=== PATIENT | male | born 1930 | race Caucasian/White ===

== ENCOUNTER 2016-11-19 06:42 | Inpatient (IN) | payer MEDICARE, OTHER ==
[~2016-11-19] VITALS: Ht 177.8 cm; Wt 100.0 kg
[~2016-11-19 06:42] MED LIST: COLC0.6T OR; FURO40TA PO; GLIP-110 PO; IND25C PO; INDO50SU RE; MAGN30TA2; METO5TAB56; NITR-48; OMEP20TA44; POTA25TA4; SIMV-13 PO; TAM04C PO; WARF3TAB20; [UNRECOGNIZED DRUG - OTHER]
[2016-11-19] MEDS ORDERED: SODIUM CHLORIDE 0.9% 500 ML IVB ONE (08:27)
[2016-11-19 08:33] LABS: Basophils # (auto) 0 uL; Basophils % (auto) 0.3 % (0.0-2.0); Eosinophils # (auto) 0.1 uL; Eosinophils % (auto) 0.9 % (0.0-7.0); Hemoglobin 11.9 g/dL (13.5-17.5); Lymphocytes % (auto) 14.3 % (10.0-50.0); Mean Corpuscular Hemoglobin 29.1 pg (28.0-32.0); Mean Corpuscular Hgb Conc. 32.3 g/dL (32.0-36.0); Mean Corpuscular Volume 90.2 fL (80.0-100.0); Mean Platelet Volume 8.2 fL (7.4-10.4); Monocytes # (auto) 0.9 uL; Monocytes % (auto) 12.5 % (0.0-12.0); Neutrophils # (auto) 4.9 uL; Platelet Count (auto) 149 10^3/uL (140-450); Red Cell Distribution Width 15.5 % (11.6-16.0); White Blood Cell 6.8 10^3/uL (4.4-10.8)
[2016-11-19 08:47] LABS: Albumin 3.4 g/dL (3.4-5.0); BUN/Creatinine Ratio 13.1; Bilirubin, Total 0.9 mg/dL (0.2-1.0); Calcium 8.9 mg/dL (8.5-10.1); Magnesium 2.1 mg/dL (1.6-2.6); Potassium 3.9 mmol/L (3.5-5.1); Total Protein 6.6 g/dL (6.4-8.2)
[2016-11-19 09:24] LABS: B-Type Natriuretic Peptide 308.53 pg/mL (0-100); Temperature: 22.5 C (20.0-25.0)
[2016-11-19] MEDS ORDERED: ACETAMINOPHEN 325 MG TAB PO PRN (10:15)
[2016-11-19] MEDS ORDERED: MORPHINE SULF INJ 2 MG/ML SYRINGE 1ML IV PRN (10:15)
[2016-11-19] MEDS: SODIUM CHLORIDE 0.9% 1,000 ML IV SCH (10:15)
[2016-11-19] MEDS ORDERED: HYDROcodone-ACET 5/325MG TAB PO PRN (10:15)
[2016-11-19] MEDS ORDERED: DOCUSATE SOD 100 MG CAP PO PRN (10:15)
[2016-11-19] MEDS ORDERED: ONDANSETRON HCL 4 MG/2 ML VIAL IV PRN (10:15)
[2016-11-19] MEDS ORDERED: AMO250C PO (10:36)
[2016-11-19] MEDS ORDERED: ESCI20TA51 PO (10:36)
[2016-11-19] MEDS ORDERED: ASPI-231 PO (10:36)
[2016-11-19] MEDS ORDERED: RISP0.5T45 PO (10:36)
[2016-11-19] MEDS ORDERED: POTA10TA75 PO (10:36)
[2016-11-19] MEDS ORDERED: NITR0.4S29 SL (10:37)
[2016-11-19] MEDS ORDERED: ONGLYZA PO (10:39)
[2016-11-19] MEDS ORDERED: RAMI5CAP40 PO (10:39)
[2016-11-19 11:00] VITALS: BP 153/86
[2016-11-19] MEDS: MULTIPLE VITAMIN TAB PO SCH (11:04)
[2016-11-19] MEDS: FAMOTIDINE 20 MG TAB PO SCH ×2 (11:05→22:41)
[2016-11-19] MEDS: ENOXAPARIN SOD 40 MG/0.4 ML SYRINGE SC SCH (11:05)
[2016-11-19] MEDS ORDERED: risperiDONE 1 MG TAB PO PRN (15:30)
[2016-11-19 17:00] VITALS: BP 157/88
[2016-11-19 19:33] LABS: Urine Bilirubin Negative (Negative); Urine Blood Negative /uL (Negative); Urine Color Yellow (Yellow); Urine Glucose Normal (Normal); Urine Ketone Negative (Negative); Urine Nitrite Negative (Negative); Urine RBC 15 /hpf (0 - 3); Urine Urobilinogen Normal (Negative)
[2016-11-19 22:00] VITALS: BP 160/74
[2016-11-20] MEDS: SODIUM CHLORIDE 0.9% 1,000 ML IV SCH ×2 (02:55→22:13)
[2016-11-20 05:00] VITALS: BP 155/98
[2016-11-20 05:50] LABS: Basophils # (auto) 0 uL; Basophils % (auto) 0.6 % (0.0-2.0); Eosinophils # (auto) 0.1 uL; Eosinophils % (auto) 2.2 % (0.0-7.0); Hematocrit 36.8 % (41.0-53.0); Hemoglobin 11.9 g/dL (13.5-17.5); Lymphocytes # (auto) 0.8 uL; Lymphocytes % (auto) 15.5 % (10.0-50.0); Mean Corpuscular Hemoglobin 29.1 pg (28.0-32.0); Mean Corpuscular Hgb Conc. 32.5 g/dL (32.0-36.0); Mean Corpuscular Volume 89.8 fL (80.0-100.0); Mean Platelet Volume 8.3 fL (7.4-10.4); Monocytes # (auto) 0.7 uL; Monocytes % (auto) 13.1 % (0.0-12.0); Neutrophils # (auto) 3.6 uL; Neutrophils % (auto) 68.6 % (37.0-80.0); Platelet Count (auto) 126 10^3/uL (140-450); Red Cell Distribution Width 15.5 % (11.6-16.0); White Blood Cell 5.3 10^3/uL (4.4-10.8)
[2016-11-20 06:09] LABS: Albumin 2.9 g/dL (3.4-5.0); BUN/Creatinine Ratio 13.8; Potassium 3.2 mmol/L (3.5-5.1)
[2016-11-20 09:00] VITALS: BP 155/96
[2016-11-20] MEDS: ENOXAPARIN SOD 40 MG/0.4 ML SYRINGE SC SCH (10:27)
[2016-11-20] MEDS: MULTIPLE VITAMIN TAB PO SCH (10:27)
[2016-11-20] MEDS: FAMOTIDINE 20 MG TAB PO SCH ×2 (10:27→22:12)
[2016-11-20 13:00] VITALS: BP 149/81
[2016-11-20 17:00] VITALS: BP 119/58
[2016-11-20 22:00] VITALS: BP 124/63
[2016-11-21 05:38] VITALS: BP 122/70
[2016-11-21 09:00] VITALS: BP 162/85
[2016-11-21] MEDS: MULTIPLE VITAMIN TAB PO SCH (10:19)
[2016-11-21] MEDS: ENOXAPARIN SOD 40 MG/0.4 ML SYRINGE SC SCH (10:20)
[2016-11-21] MEDS: FAMOTIDINE 20 MG TAB PO SCH ×2 (10:20→21:50)
[2016-11-21] MEDS: SODIUM CHLORIDE 0.9% 1,000 ML IV SCH (12:15)
[2016-11-21 13:00] VITALS: BP_SYST 112; BP_SYST 160; BP_DIAS 51; BP_DIAS 85
[2016-11-21 17:00] VITALS: BP 157/108
[2016-11-21 22:00] VITALS: BP 163/88
[2016-11-22] MEDS: SODIUM CHLORIDE 0.9% 1,000 ML IV SCH ×2 (04:55→21:35)
[2016-11-22 05:58] VITALS: BP 153/77
[2016-11-22 09:00] VITALS: BP 70/99
[2016-11-22] MEDS: FAMOTIDINE 20 MG TAB PO SCH ×2 (10:55→23:17)
[2016-11-22] MEDS: ENOXAPARIN SOD 40 MG/0.4 ML SYRINGE SC SCH (10:55)
[2016-11-22] MEDS: MULTIPLE VITAMIN TAB PO SCH (10:55)
[2016-11-22 13:00] VITALS: BP 165/88
[2016-11-22 17:00] VITALS: BP 159/79
[2016-11-22 21:27] VITALS: BP 160/86
[2016-11-22] MEDS: TEMAZEPAM 15 MG CAP PO PRN (23:17)
[2016-11-23 05:12] VITALS: BP 160/79
[2016-11-23 09:00] VITALS: BP 162/85
[2016-11-23] MEDS: FAMOTIDINE 20 MG TAB PO SCH ×2 (10:06→22:13)
[2016-11-23] MEDS: MULTIPLE VITAMIN TAB PO SCH (10:06)
[2016-11-23] MEDS: RAMIPRIL 2.5 MG CAP PO SCH ×2 (10:10→22:13)
[2016-11-23] MEDS: ENOXAPARIN SOD 40 MG/0.4 ML SYRINGE SC SCH (10:10)
[2016-11-23 13:00] VITALS: BP 175/93
[2016-11-23 16:24] LABS: Basophils # (auto) 0 uL; Basophils % (auto) 0.5 % (0.0-2.0); Eosinophils # (auto) 0.1 uL; Eosinophils % (auto) 1.1 % (0.0-7.0); Hematocrit 38.5 % (41.0-53.0); Hemoglobin 12.6 g/dL (13.5-17.5); Lymphocytes # (auto) 1.2 uL; Lymphocytes % (auto) 16.8 % (10.0-50.0); Mean Corpuscular Hemoglobin 29.4 pg (28.0-32.0); Mean Corpuscular Hgb Conc. 32.8 g/dL (32.0-36.0); Mean Corpuscular Volume 89.5 fL (80.0-100.0); Mean Platelet Volume 8.2 fL (7.4-10.4); Monocytes # (auto) 0.8 uL; Monocytes % (auto) 11.8 % (0.0-12.0); Neutrophils # (auto) 4.8 uL; Neutrophils % (auto) 69.8 % (37.0-80.0); Platelet Count (auto) 169 10^3/uL (140-450); Red Cell Distribution Width 15.3 % (11.6-16.0); White Blood Cell 6.8 10^3/uL (4.4-10.8)
[2016-11-23 16:47] LABS: Albumin 3.3 g/dL (3.4-5.0); BUN/Creatinine Ratio 10.3; Calcium 8.8 mg/dL (8.5-10.1); Potassium 3.6 mmol/L (3.5-5.1)
[2016-11-23 16:49] LABS: Bilirubin, Total 0.9 mg/dL (0.2-1.0); Total Protein 6.8 g/dL (6.4-8.2)
[2016-11-23 17:00] VITALS: BP 140/85
[2016-11-23] MEDS: TAMSULOSIN HYDROCHLORIDE 0.4 MG CAP PO SCH (18:00)
[2016-11-23 21:52] VITALS: BP 161/82
[2016-11-24 05:00] VITALS: BP 157/82
[2016-11-24 07:52] LABS: Temperature: 22.7 C (20.0-25.0)
[2016-11-24 09:00] VITALS: BP 160/90
[2016-11-24] MEDS: MULTIPLE VITAMIN TAB PO SCH (10:15)
[2016-11-24] MEDS: POTASSIUM CHL 20 Meq TABLET PO SCH (10:16)
[2016-11-24] MEDS: ENOXAPARIN SOD 40 MG/0.4 ML SYRINGE SC SCH (10:16)
[2016-11-24] MEDS: RAMIPRIL 2.5 MG CAP PO SCH ×2 (10:16→21:46)
[2016-11-24] MEDS: FAMOTIDINE 20 MG TAB PO SCH ×2 (10:16→21:46)
[2016-11-24] MEDS: FUROSEMIDE 20 MG TAB PO SCH (10:17)
[2016-11-24 13:00] VITALS: BP 155/84
[2016-11-24 16:33] VITALS: BP 141/82
[2016-11-24] MEDS: TAMSULOSIN HYDROCHLORIDE 0.4 MG CAP PO SCH (17:47)
[2016-11-24 21:30] VITALS: BP 150/77
[2016-11-24] MEDS: TEMAZEPAM 15 MG CAP PO PRN (21:47)
[2016-11-25 05:01] VITALS: BP 135/77
[2016-11-25 09:00] VITALS: BP 143/79
[2016-11-25] MEDS: FUROSEMIDE 20 MG TAB PO SCH (10:26)
[2016-11-25] MEDS: RAMIPRIL 2.5 MG CAP PO SCH ×2 (10:26→21:48)
[2016-11-25] MEDS: ENOXAPARIN SOD 40 MG/0.4 ML SYRINGE SC SCH (10:26)
[2016-11-25] MEDS: MULTIPLE VITAMIN TAB PO SCH (10:26)
[2016-11-25] MEDS: FAMOTIDINE 20 MG TAB PO SCH ×2 (10:26→21:48)
[2016-11-25] MEDS: POTASSIUM CHL 20 Meq TABLET PO SCH (10:26)
[2016-11-25 13:00] VITALS: BP 155/96
[2016-11-25 17:00] VITALS: BP 147/79
[2016-11-25] MEDS: TEMAZEPAM 15 MG CAP PO PRN (17:40)
[2016-11-25] MEDS: TAMSULOSIN HYDROCHLORIDE 0.4 MG CAP PO SCH (17:58)
[2016-11-25 22:04] VITALS: BP 143/86
[2016-11-26 05:00] VITALS: BP 164/80
[2016-11-26 09:00] VITALS: BP 160/89
[2016-11-26] MEDS: ENOXAPARIN SOD 40 MG/0.4 ML SYRINGE SC SCH (09:46)
[2016-11-26] MEDS: POTASSIUM CHL 20 Meq TABLET PO SCH (09:46)
[2016-11-26] MEDS: FUROSEMIDE 20 MG TAB PO SCH (09:47)
[2016-11-26] MEDS: FAMOTIDINE 20 MG TAB PO SCH (09:47)
[2016-11-26] MEDS: MULTIPLE VITAMIN TAB PO SCH (09:47)
[2016-11-26] MEDS: RAMIPRIL 2.5 MG CAP PO SCH (09:48)
[2016-11-26] MEDS ORDERED: risperiDONE 1 MG TAB PO SCH (10:00)
[2016-11-26 13:00] VITALS: BP 150/81
== END 2016-11-26 14:15 | disposition home or self-care (01) | DRG 871 ==
LOC: ER 06:45 → OVERFLOW 06:46 → WEST WING 11:40
PROVIDERS: ADMIT Internal Medicine; ATTEND Internal Medicine Cardiovascular Disease
DX: A41.9 Sepsis, unspecified organism (principal); G92 Toxic encephalopathy; I63.9 Cerebral infarction, unspecified; J18.9 Pneumonia, unspecified organism; I13.0 Hypertensive heart and chronic kidney disease with heart failure and stage 1 through stage 4 chronic kidney disease, or unspecified chronic kidney disease; I50.42 Chronic combined systolic (congestive) and diastolic (congestive) heart failure; N39.0 Urinary tract infection, site not specified; D63.8 Anemia in other chronic diseases classified elsewhere; E11.21 Type 2 diabetes mellitus with diabetic nephropathy; E11.22 Type 2 diabetes mellitus with diabetic chronic kidney disease; E78.5 Hyperlipidemia, unspecified; I25.10 Atherosclerotic heart disease of native coronary artery without angina pectoris; N18.3 Chronic kidney disease, stage 3 (moderate); F02.80 Dementia in other diseases classified elsewhere, unspecified severity, without behavioral disturbance, psychotic disturbance, mood disturbance, and anxiety; G30.9 Alzheimer's disease, unspecified; I34.0 Nonrheumatic mitral (valve) insufficiency; E66.9 Obesity, unspecified; Z79.899 Other long term (current) drug therapy; Z87.440 Personal history of urinary (tract) infections; I25.2 Old myocardial infarction; Z95.1 Presence of aortocoronary bypass graft; Z95.2 Presence of prosthetic heart valve; Z98.49 Cataract extraction status, unspecified eye; Z79.82 Long term (current) use of aspirin
CPT/HCPCS: 36415; 70450; 71010; 80053; 81001; 82607; 82746; 83605; 83735; 83880; 84439; 84443; 84484; 85025; 87040; 92610; 93005; 93306; 93886; 94761; 95819; 96372; 97001; J2405

== ENCOUNTER → 2017-07-28 | Outpatient (CLI) | payer MEDICARE, OTHER ==
[~2017-07-28] MED LIST changes: +AMO250C PO; +ASPI-231 PO; -COLC0.6T OR; +ESCI20TA51 PO; -IND25C PO; -INDO50SU RE; -MAGN30TA2; -NITR-48; +NITR0.4S29 SL; +ONGLYZA PO; +POTA10TA75 PO; -POTA25TA4; +RAMI5CAP40 PO; +RISP0.5T45 PO; -WARF3TAB20; -[UNRECOGNIZED DRUG - OTHER]
[2017-07-28 10:15] LABS: Urine RBC None Seen /hpf (0 - 3)
[2017-07-28 12:12] LABS: Basophils # (auto) 0 uL; Basophils % (auto) 0.6 % (0.0-2.0); Eosinophils # (auto) 0.1 uL; Eosinophils % (auto) 1.7 % (0.0-7.0); Hematocrit 42.3 % (41.0-53.0); Hemoglobin 13.9 g/dL (13.5-17.5); Lymphocytes # (auto) 0.8 uL; Lymphocytes % (auto) 12.3 % (10.0-50.0); Mean Corpuscular Hemoglobin 29.3 pg (28.0-32.0); Mean Corpuscular Hgb Conc. 32.8 g/dL (32.0-36.0); Mean Corpuscular Volume 89.4 fL (80.0-100.0); Mean Platelet Volume 8.1 fL (7.4-10.4); Monocytes # (auto) 0.5 uL; Monocytes % (auto) 8.2 % (0.0-12.0); Neutrophils # (auto) 5.1 uL; Neutrophils % (auto) 77.2 % (37.0-80.0); Platelet Count (auto) 166 10^3/uL (140-450); Red Cell Distribution Width 15.4 % (11.6-16.0); White Blood Cell 6.6 10^3/uL (4.4-10.8)
[2017-07-28 12:16] LABS: Urine Bilirubin Negative (Negative); Urine Blood Negative /uL (Negative); Urine Color Yellow (Yellow); Urine Glucose Normal (Normal); Urine Ketone Negative (Negative); Urine Mucus FEW (None Seen); Urine Nitrite Negative (Negative); Urine Squamous Epithelial Cell FEW /hpf (<5); Urine Urobilinogen Normal (Negative); Urine pH 5.5 (5.0-8.0)
[2017-07-28 12:32] LABS: Albumin 3.5 g/dL (3.4-5.0); BUN/Creatinine Ratio 14.4; Bilirubin, Direct 0.2 mg/dL (0-0.2); Bilirubin, Total 0.5 mg/dL (0.2-1.0); Calcium 8.7 mg/dL (8.5-10.1); Potassium 4.6 mmol/L (3.5-5.1); Total Protein 7.3 g/dL (6.4-8.2)
== END | disposition home or self-care (01) ==
LOC: LAB 09:50
PROVIDERS: ATTEND Internal Medicine Cardiovascular Disease
DX: I10 Essential (primary) hypertension (principal); E78.00 Pure hypercholesterolemia, unspecified; K74.1 Hepatic sclerosis; E11.9 Type 2 diabetes mellitus without complications; R97.20 Elevated prostate specific antigen [PSA]; R53.81 Other malaise; E03.9 Hypothyroidism, unspecified; D64.9 Anemia, unspecified; E55.9 Vitamin D deficiency, unspecified; N39.0 Urinary tract infection, site not specified
CPT/HCPCS: 36415; 80048; 80061; 80076; 81001; 82306; 83036; 84153; 84443; 85025; 87086

== ENCOUNTER → 2017-08-10 | Outpatient (CLI) | payer MEDICARE, OTHER | END | disposition home or self-care (01) | LOC: Rad HDHVI 09:41 | PROVIDERS: ATTEND Internal Medicine Cardiovascular Disease | DX: R06.02 Shortness of breath (principal); E11.9 Type 2 diabetes mellitus without complications | CPT/HCPCS: 93306 ==

== ENCOUNTER → 2017-08-14 | Outpatient (CLI) | payer MEDICARE, OTHER ==
[~2017-08-14] MED LIST changes: +RISP1TAB63 PO
[2017-08-14 10:00] VITALS: BP 150/76
[2017-08-14 10:26] VITALS: BP 141/75
[2017-08-14 12:22] LABS: Basophils # (auto) 0.1 uL; Basophils % (auto) 0.8 % (0.0-2.0); Eosinophils # (auto) 0.1 uL; Eosinophils % (auto) 1.9 % (0.0-7.0); Hematocrit 41.1 % (41.0-53.0); Hemoglobin 13.7 g/dL (13.5-17.5); Lymphocytes # (auto) 0.9 uL; Lymphocytes % (auto) 11.4 % (10.0-50.0); Mean Corpuscular Hemoglobin 29.7 pg (28.0-32.0); Mean Corpuscular Hgb Conc. 33.3 g/dL (32.0-36.0); Mean Corpuscular Volume 89.2 fL (80.0-100.0); Monocytes # (auto) 0.7 uL; Neutrophils # (auto) 5.8 uL; Neutrophils % (auto) 76.9 % (37.0-80.0); Nucleated Red Blood Cells % 0.1 %; Platelet Count (auto) 155 10^3/uL (140-450); Red Cell Distribution Width 15.8 % (11.8-14.3); White Blood Cell 7.6 10^3/uL (4.4-10.8)
[2017-08-14 12:29] LABS: BUN/Creatinine Ratio 15.2; Calcium 8.6 mg/dL (8.5-10.1); Potassium 4.5 mmol/L (3.5-5.1)
[2017-08-14 12:36] LABS: INR 1.08 (0.9-1.15); Partial Thromboplastin Time 28.7 sec (22.64-33.71); Prothrombin Time 11.8 sec (9.37-12.3)
== END | disposition home or self-care (01) ==
LOC: Rad HDHVI 09:45
PROVIDERS: ATTEND Internal Medicine Cardiovascular Disease
DX: Z01.818 Encounter for other preprocedural examination (principal); I25.10 Atherosclerotic heart disease of native coronary artery without angina pectoris; I10 Essential (primary) hypertension; D64.9 Anemia, unspecified; R79.1 Abnormal coagulation profile; Z95.0 Presence of cardiac pacemaker
CPT/HCPCS: 36415; 71020; 80048; 85025; 85610; 85730; 93005; G0463

== ENCOUNTER 2017-08-17 06:49 | Inpatient (IN) | payer MEDICARE, OTHER ==
[~2017-08-17] VITALS: Ht 177.8 cm; Wt 102.4 kg
[~2017-08-17 06:49] MED LIST changes: -AMO250C PO; -METO5TAB56; -RISP0.5T45 PO
[2017-08-17] MEDS ORDERED: LIDOCAINE 2%HCL (LOCAL ANESTH.) INJ 20ML MDV ONE (07:34)
[2017-08-17] MEDS ORDERED: VANCOMYCIN HCL 1000 MG VL IR ONE (07:45)
[2017-08-17] MEDS ORDERED: ceFAZolin 1GM/50ML D5W 50 ML IV ONE ×2 (07:45→07:53)
[2017-08-17] MEDS ORDERED: VANCOMYCIN 1GM/250ML D5W 250 ML IV ONE ×2 (07:45→07:53)
[2017-08-17] MEDS ORDERED: MIDAZOLAM HCL 1MG/1ML-2 ML VIAL ONE (07:46)
[2017-08-17] MEDS ORDERED: fentaNYL CITRATE 100 MCG/2 ML VL ONE (07:47)
[2017-08-17] MEDS ORDERED: VANCOMYCIN HCL 1000 MG VL ONE (07:53)
[2017-08-17] MEDS ORDERED: cloNIDine HCL 0.1 MG TAB PO ONE (10:15)
[2017-08-17] MEDS ORDERED: MORPHINE SULF INJ 2 MG/ML SYRINGE 1ML IV PRN (12:00)
[2017-08-17] MEDS ORDERED: NITROGLYCERIN 0.4 MG SL TAB SL PRN (12:00)
[2017-08-17 14:20] VITALS: BP 158/89
[2017-08-17 17:45] VITALS: BP 173/91
[2017-08-17 17:47] VITALS: BP 173/91
[2017-08-17 22:00] VITALS: BP 147/84
[2017-08-18 05:00] VITALS: BP 147/90
[2017-08-18 08:30] VITALS: BP 126/79
[2017-08-18 08:33] VITALS: BP 142/79
[2017-08-18 09:07] VITALS: BP 142/79
== END 2017-08-18 11:05 | disposition home or self-care (01) | DRG 259 ==
LOC: CATH 06:49 → TELE-E-ADS 06:50 → TELE-EAST 17:36
PROVIDERS: ADMIT Internal Medicine Cardiovascular Disease; ATTEND Internal Medicine Cardiovascular Disease
PROC: 0JPT0PZ Removal of Cardiac Rhythm Related Device from Trunk Subcutaneous Tissue and Fascia, Open Approach (ICD-10-PCS; principal; 2017-08-17)
PROC: 0JH604Z Insertion of Pacemaker, Single Chamber into Chest Subcutaneous Tissue and Fascia, Open Approach (ICD-10-PCS; 2017-08-17)
DX: I49.5 Sick sinus syndrome (principal); D68.59 Other primary thrombophilia; G30.9 Alzheimer's disease, unspecified; F01.50 Vascular dementia, unspecified severity, without behavioral disturbance, psychotic disturbance, mood disturbance, and anxiety; F02.80 Dementia in other diseases classified elsewhere, unspecified severity, without behavioral disturbance, psychotic disturbance, mood disturbance, and anxiety; I48.2 Chronic atrial fibrillation; E78.5 Hyperlipidemia, unspecified; F09 Unspecified mental disorder due to known physiological condition; I10 Essential (primary) hypertension; I25.10 Atherosclerotic heart disease of native coronary artery without angina pectoris
CPT/HCPCS: 33227; 36415; 71020; 80048; 85025; 85610; 85730; 93005; 99152; 99153; C1785; G0463; J0690; J2250

== ENCOUNTER → 2017-11-22 | Outpatient (CLI) | payer MEDICARE, OTHER ==
[~2017-11-22] VITALS: Ht 30.5 cm; Wt 0.5 kg
[~2017-11-22] MED LIST changes: +CYANOCOBALAMIN (B-12) 1000 MCG/1 ML VIAL IM ONE; +CYANOCOBALAMIN (B-12) 1000 MCG/1 ML VIAL ONE; +FUROSEMIDE 100 MG/10ML VIAL IV ONE; +FUROSEMIDE 40 MG/4 ML VIAL ONE; +POTASSIUM CHL 20 Meq TABLET PO ONE
[2017-11-22 10:30] VITALS: BP 110/58
[2017-11-22 11:20] VITALS: BP 118/62
[2017-11-22 16:43] LABS: Basophils # (auto) 0 uL; Basophils % (auto) 0.7 % (0.0-2.0); Eosinophils # (auto) 0.1 uL; Lymphocytes # (auto) 0.8 uL; Lymphocytes % (auto) 11.9 % (10.0-50.0); Mean Corpuscular Hemoglobin 30.4 pg (28.0-32.0); Mean Corpuscular Hgb Conc. 33.2 g/dL (32.0-36.0); Mean Corpuscular Volume 91.3 fL (80.0-100.0); Monocytes # (auto) 0.6 uL; Monocytes % (auto) 9.4 % (0.0-12.0); Neutrophils # (auto) 4.9 uL; Nucleated Red Blood Cells % 0.5 %; Platelet Count (auto) 172 10^3/uL (140-450); Red Blood Cells 4.27 10^6/uL (4.5-5.90); Red Cell Distribution Width 15.7 % (11.8-14.3); White Blood Cell 6.4 10^3/uL (4.4-10.8)
[2017-11-22 16:47] LABS: BUN/Creatinine Ratio 16.9; Calcium 8.6 mg/dL (8.5-10.1); Magnesium 2.3 mg/dL (1.6-2.6); Potassium 4.7 mmol/L (3.5-5.1)
== END | disposition home or self-care (01) ==
LOC: Rad HDHVI 09:55
PROVIDERS: ATTEND Internal Medicine Cardiovascular Disease
DX: I25.5 Ischemic cardiomyopathy (principal); I34.0 Nonrheumatic mitral (valve) insufficiency; I11.0 Hypertensive heart disease with heart failure; I50.23 Acute on chronic systolic (congestive) heart failure; D64.9 Anemia, unspecified; D51.9 Vitamin B12 deficiency anemia, unspecified; E55.9 Vitamin D deficiency, unspecified; E87.70 Fluid overload, unspecified
CPT/HCPCS: 36415; 80048; 82306; 82607; 83735; 83880; 85025; 93306; 96372; 96374; G0463; J1940; J3420

== ENCOUNTER → 2017-12-13 | Outpatient (CLI) | payer MEDICARE, OTHER ==
[~2017-12-13] MED LIST changes: -CYANOCOBALAMIN (B-12) 1000 MCG/1 ML VIAL IM ONE; -FUROSEMIDE 100 MG/10ML VIAL IV ONE; -FUROSEMIDE 40 MG/4 ML VIAL ONE; +KETOROLAC TROMETH 60MG/2ML VIAL IM ONE; -POTASSIUM CHL 20 Meq TABLET PO ONE
[2017-12-13 10:20] VITALS: BP 135/63
[2017-12-13 12:30] VITALS: BP 119/65
[2017-12-13 16:18] LABS: Potassium 4.3 mmol/L (3.5-5.1)
== END | disposition home or self-care (01) ==
LOC: CHF HDHVI 10:16
PROVIDERS: ATTEND Internal Medicine Cardiovascular Disease
DX: S29.9XXA Unspecified injury of thorax, initial encounter (principal); X58.XXXA Exposure to other specified factors, initial encounter; Y93.89 Activity, other specified; Y92.89 Other specified places as the place of occurrence of the external cause; Y99.8 Other external cause status; E87.5 Hyperkalemia; R94.4 Abnormal results of kidney function studies
CPT/HCPCS: 36415; 71101; 82565; 84132; 84520; 96372; G0463; J1885

== ENCOUNTER 2017-12-16 18:32 | Inpatient (IN) | payer MEDICARE, OTHER ==
[~2017-12-16] VITALS: Ht 182.9 cm; Wt 94.0 kg
[~2017-12-16 18:32] MED LIST changes: -CYANOCOBALAMIN (B-12) 1000 MCG/1 ML VIAL ONE; -KETOROLAC TROMETH 60MG/2ML VIAL IM ONE
[2017-12-16 19:38] LABS: Basophils # (auto) 0.1 uL; Eosinophils # (auto) 0.1 uL; Eosinophils % (auto) 1.2 % (0.0-7.0); Hemoglobin 13.7 g/dL (13.5-17.5); Lymphocytes # (auto) 0.8 uL; Lymphocytes % (auto) 11.2 % (10.0-50.0); Mean Corpuscular Hemoglobin 30.9 pg (28.0-32.0); Mean Corpuscular Hgb Conc. 33.5 g/dL (32.0-36.0); Mean Corpuscular Volume 92.2 fL (80.0-100.0); Monocytes # (auto) 0.9 uL; Monocytes % (auto) 12.5 % (0.0-12.0); Neutrophils # (auto) 5.5 uL; Neutrophils % (auto) 74.1 % (37.0-80.0); Platelet Count (auto) 184 10^3/uL (140-450); Red Blood Cells 4.44 10^6/uL (4.5-5.90); Red Cell Distribution Width 15.6 % (11.8-14.3); White Blood Cell 7.4 10^3/uL (4.4-10.8)
[2017-12-16 19:57] LABS: Albumin 3.8 g/dL (3.4-5.0); BUN/Creatinine Ratio 24.8; Bilirubin, Total 0.6 mg/dL (0.2-1.0); Calcium 8.8 mg/dL (8.5-10.1); Potassium 4.6 mmol/L (3.5-5.1); Total Protein 8.2 g/dL (6.4-8.2)
[2017-12-16 21:12] LABS: Hemoglobin 13.2 g/dL (13.5-17.5)
[2017-12-16 21:15] LABS: Basophils # (auto) 0 uL; Basophils % (auto) 0.6 % (0.0-2.0); Eosinophils # (auto) 0.1 uL; Eosinophils % (auto) 0.7 % (0.0-7.0); Hematocrit 38.9 % (41.0-53.0); Lymphocytes # (auto) 0.7 uL; Lymphocytes % (auto) 8.9 % (10.0-50.0); Mean Corpuscular Hemoglobin 30.8 pg (28.0-32.0); Mean Corpuscular Hgb Conc. 33.8 g/dL (32.0-36.0); Mean Corpuscular Volume 91.1 fL (80.0-100.0); Monocytes # (auto) 0.9 uL; Neutrophils # (auto) 5.7 uL; Neutrophils % (auto) 77.8 % (37.0-80.0); Platelet Count (auto) 171 10^3/uL (140-450); Red Blood Cells 4.27 10^6/uL (4.5-5.90); White Blood Cell 7.3 10^3/uL (4.4-10.8)
[2017-12-16] MEDS ORDERED: FUROSEMIDE 20 MG/2 ML VIAL IV ONE (21:30)
[2017-12-16 21:38] LABS: INR 1.08 (0.9-1.15); Partial Thromboplastin Time 26.3 sec (22.64-33.71); Prothrombin Time 11.8 sec (9.37-12.3)
[2017-12-16 21:42] LABS: Urine Bacteria NONE SEEN /hpf (None Seen); Urine Blood Negative /uL (Negative); Urine Hyaline Cast FEW /lpf (0 - 2); Urine Specific Gravity 1.014 (1.001-1.035); Urine WBC 1 /hpf (0 - 3)
[2017-12-16 21:52] LABS: Albumin 3.6 g/dL (3.4-5.0); Bilirubin, Total 0.6 mg/dL (0.2-1.0); Calcium 8.8 mg/dL (8.5-10.1); Magnesium 2.6 mg/dL (1.6-2.6); Potassium 4.5 mmol/L (3.5-5.1); Total Protein 7.6 g/dL (6.4-8.2)
[2017-12-16] MEDS ORDERED: ENOXAPARIN SOD 100 MG/1 ML SYRINGE SC ONE (22:30)
[2017-12-17] MEDS ORDERED: DEXTROSE (50%) 50ML SYRG IV PRN (06:15)
[2017-12-17] MEDS ORDERED: MORPHINE SULF INJ 2 MG/ML SYRINGE 1ML IV PRN (06:15)
[2017-12-17] MEDS ORDERED: NITROGLYCERIN 0.4 MG SL TAB SL PRN (06:15)
[2017-12-17] MEDS ORDERED: HYDROcodone-ACET 5/325MG TAB PO PRN (06:15)
[2017-12-17] MEDS ORDERED: TEMAZEPAM 15 MG CAP PO PRN (06:15)
[2017-12-17] MEDS ORDERED: ONDANSETRON HCL 4 MG/2 ML VIAL IV PRN (06:15)
[2017-12-17] MEDS ORDERED: ACETAMINOPHEN 325 MG TAB PO PRN (06:15)
[2017-12-17] MEDS ORDERED: DOCUSATE SOD 100 MG CAP PO PRN (06:15)
[2017-12-17] MEDS: PANTOPRAZOLE 40 MG TAB PO SCH (09:49)
[2017-12-17] MEDS: ASPirin 81 mg TAB PO SCH (09:49)
[2017-12-17] MEDS: RAMIPRIL 2.5 MG CAP PO SCH ×2 (09:51→22:24)
[2017-12-17] MEDS: ACCU-CHEK COMFORT CURVE STRIP VI SCH ×2 (12:00→17:22)
[2017-12-17] MEDS: InsuLIN REG 1unit/0.01ml Soln (100units/ml) SC SCH ×2 (12:00→17:27)
[2017-12-17 12:15] VITALS: BP_SYST 140; BP_SYST 153; BP_DIAS 72; BP_DIAS 79
[2017-12-17 12:52] VITALS: BP 120/58
[2017-12-17] MEDS: risperiDONE 1 MG TAB PO SCH (16:25)
[2017-12-17] MEDS: DOBUTamine 1000MCG/ML 250 ML IV SCH (16:50)
[2017-12-17] MEDS: FUROSEMIDE INJECTION 250 MG in SODIUM CHL 0.9% 225 ML IV SCH (16:52)
[2017-12-17 17:00] VITALS: BP 137/59
[2017-12-17] MEDS: FUROSEMIDE 40 MG TAB PO SCH (17:19)
[2017-12-17] MEDS: TAMSULOSIN HYDROCHLORIDE 0.4 MG CAP PO SCH (17:20)
[2017-12-17] MEDS: PATIENTS OWN MEDICATION PO SCH (18:38)
[2017-12-17 22:00] VITALS: BP 116/64
[2017-12-17] MEDS: ENOXAPARIN SOD 80 MG/0.8ML SYRINGE SC SCH (22:25)
[2017-12-17] MEDS: ATORVASTATIN 20 MG TAB PO SCH (22:25)
[2017-12-18] MEDS: ACCU-CHEK COMFORT CURVE STRIP VI SCH ×4 (00:22→18:10)
[2017-12-18] MEDS: InsuLIN REG 1unit/0.01ml Soln (100units/ml) SC SCH ×4 (00:22→18:10)
[2017-12-18] MEDS: FUROSEMIDE 40 MG TAB PO SCH ×2 (05:30→18:09)
[2017-12-18 05:37] VITALS: BP 113/60
[2017-12-18] MEDS: risperiDONE 1 MG TAB PO SCH ×2 (06:22→22:24)
[2017-12-18] MEDS: glipiZIDE 5 MG TAB PO SCH (06:22)
[2017-12-18 06:32] LABS: Basophils # (auto) 0 uL; Basophils % (auto) 0.5 % (0.0-2.0); Eosinophils # (auto) 0.1 uL; Eosinophils % (auto) 0.7 % (0.0-7.0); Hematocrit 38.4 % (41.0-53.0); Hemoglobin 13.3 g/dL (13.5-17.5); Lymphocytes # (auto) 0.7 uL; Lymphocytes % (auto) 8.7 % (10.0-50.0); Mean Corpuscular Hemoglobin 30.9 pg (28.0-32.0); Mean Corpuscular Hgb Conc. 34.5 g/dL (32.0-36.0); Mean Corpuscular Volume 89.5 fL (80.0-100.0); Monocytes # (auto) 1.1 uL; Monocytes % (auto) 13.9 % (0.0-12.0); Neutrophils % (auto) 76.2 % (37.0-80.0); Nucleated Red Blood Cells % 0.1 %; Platelet Count (auto) 181 10^3/uL (140-450); Red Cell Distribution Width 14.9 % (11.8-14.3); White Blood Cell 7.9 10^3/uL (4.4-10.8)
[2017-12-18 06:56] LABS: Albumin 3.4 g/dL (3.4-5.0); BUN/Creatinine Ratio 27.2; Calcium 8.8 mg/dL (8.5-10.1); Total Protein 7.2 g/dL (6.4-8.2)
[2017-12-18 07:30] VITALS: BP 141/60
[2017-12-18 09:00] VITALS: BP 141/60
[2017-12-18] MEDS ORDERED: ENOXAPARIN SOD 80 MG/0.8ML SYRINGE SC SCH (10:00)
[2017-12-18] MEDS: PANTOPRAZOLE 40 MG TAB PO SCH (11:00)
[2017-12-18] MEDS: ASPirin 81 mg TAB PO SCH (11:00)
[2017-12-18] MEDS: POTASSIUM CHL 20 Meq TABLET PO SCH (11:00)
[2017-12-18] MEDS: RAMIPRIL 2.5 MG CAP PO SCH ×2 (11:01→22:24)
[2017-12-18] MEDS: DOBUTamine 1000MCG/ML 250 ML IV SCH (11:21)
[2017-12-18 13:00] VITALS: BP 132/64
[2017-12-18] MEDS: POTASSIUM CHL 20MEQ/100ML 100 ML IV SCH ×3 (15:44→18:09)
[2017-12-18] MEDS: FUROSEMIDE INJECTION 250 MG in SODIUM CHL 0.9% 225 ML IV SCH (15:45)
[2017-12-18 17:49] VITALS: BP_SYST 105; BP_SYST 138; BP_DIAS 47; BP_DIAS 64
[2017-12-18] MEDS: TAMSULOSIN HYDROCHLORIDE 0.4 MG CAP PO SCH (18:09)
[2017-12-18 22:00] VITALS: BP 128/63
[2017-12-18] MEDS: ATORVASTATIN 20 MG TAB PO SCH (22:24)
[2017-12-18] MEDS: ENOXAPARIN SOD 80 MG/0.8ML SYRINGE SC SCH (22:25)
[2017-12-19] MEDS: InsuLIN REG 1unit/0.01ml Soln (100units/ml) SC SCH ×4 (00:33→18:00)
[2017-12-19 05:00] VITALS: BP 99/53
[2017-12-19] MEDS: FUROSEMIDE 40 MG TAB PO SCH ×2 (06:00→18:35)
[2017-12-19] MEDS: ACCU-CHEK COMFORT CURVE STRIP VI SCH ×4 (06:25→18:34)
[2017-12-19] MEDS: risperiDONE 1 MG TAB PO SCH ×2 (06:30→23:07)
[2017-12-19] MEDS: glipiZIDE 5 MG TAB PO SCH (06:31)
[2017-12-19 07:30] VITALS: BP 134/71
[2017-12-19] MEDS: PANTOPRAZOLE 40 MG TAB PO SCH (09:11)
[2017-12-19] MEDS: POTASSIUM CHL 20 Meq TABLET PO SCH (09:11)
[2017-12-19] MEDS: RAMIPRIL 2.5 MG CAP PO SCH ×2 (09:12→23:07)
[2017-12-19] MEDS: ASPirin 81 mg TAB PO SCH (09:12)
[2017-12-19 09:21] VITALS: BP 134/71
[2017-12-19] MEDS: PATIENTS OWN MEDICATION PO SCH (09:35)
[2017-12-19] MEDS: DOBUTamine 1000MCG/ML 250 ML IV SCH (10:19)
[2017-12-19 13:38] VITALS: BP 117/61
[2017-12-19 17:56] VITALS: BP 115/62
[2017-12-19] MEDS: TAMSULOSIN HYDROCHLORIDE 0.4 MG CAP PO SCH (18:33)
[2017-12-19] MEDS: FUROSEMIDE INJECTION 250 MG in SODIUM CHL 0.9% 225 ML IV SCH (19:48)
[2017-12-19 21:36] VITALS: BP 124/57
[2017-12-19] MEDS: ATORVASTATIN 20 MG TAB PO SCH (23:07)
[2017-12-19] MEDS: ENOXAPARIN SOD 80 MG/0.8ML SYRINGE SC SCH (23:07)
[2017-12-20] MEDS: ACCU-CHEK COMFORT CURVE STRIP VI SCH ×4 (00:27→18:10)
[2017-12-20] MEDS: InsuLIN REG 1unit/0.01ml Soln (100units/ml) SC SCH ×4 (00:27→18:10)
[2017-12-20 05:21] VITALS: BP 106/51
[2017-12-20] MEDS: FUROSEMIDE 40 MG TAB PO SCH ×2 (05:48→18:00)
[2017-12-20] MEDS: glipiZIDE 5 MG TAB PO SCH (06:26)
[2017-12-20] MEDS: risperiDONE 1 MG TAB PO SCH ×2 (06:27→22:07)
[2017-12-20 07:42] LABS: Basophils # (auto) 0 uL; Basophils % (auto) 0.6 % (0.0-2.0); Eosinophils # (auto) 0.1 uL; Eosinophils % (auto) 1.4 % (0.0-7.0); Hemoglobin 13.3 g/dL (13.5-17.5); Lymphocytes % (auto) 13.2 % (10.0-50.0); Mean Corpuscular Hemoglobin 30.8 pg (28.0-32.0); Mean Corpuscular Hgb Conc. 34.1 g/dL (32.0-36.0); Mean Corpuscular Volume 90.3 fL (80.0-100.0); Monocytes # (auto) 0.9 uL; Neutrophils # (auto) 5.7 uL; Neutrophils % (auto) 72.8 % (37.0-80.0); Platelet Count (auto) 195 10^3/uL (140-450); Red Blood Cells 4.32 10^6/uL (4.5-5.90); White Blood Cell 7.8 10^3/uL (4.4-10.8)
[2017-12-20 08:01] LABS: BUN/Creatinine Ratio 28.4; Calcium 8.2 mg/dL (8.5-10.1); Potassium 3.2 mmol/L (3.5-5.1)
[2017-12-20] MEDS: DOBUTamine 1000MCG/ML 250 ML IV SCH (08:17)
[2017-12-20 09:10] VITALS: BP 109/59
[2017-12-20] MEDS: RAMIPRIL 2.5 MG CAP PO SCH ×2 (10:00→22:00)
[2017-12-20] MEDS: POTASSIUM CHL 20 Meq TABLET PO SCH (11:01)
[2017-12-20] MEDS: PANTOPRAZOLE 40 MG TAB PO SCH (11:01)
[2017-12-20] MEDS: ASPirin 81 mg TAB PO SCH (11:01)
[2017-12-20] MEDS: PATIENTS OWN MEDICATION PO SCH (11:01)
[2017-12-20 13:00] VITALS: BP 120/55
[2017-12-20] MEDS ORDERED: FUROSEMIDE INJECTION 250 MG in D5W 5% 225 ML IV SCH (15:00)
[2017-12-20] MEDS ORDERED: POTASSIUM CHLORIDE 60 MEQ, LIDOCAINE 1% (LOCAL ANESTH.) 6 ML in SODIUM CHL 0.9% 500 ML IV ONE (17:30)
[2017-12-20 17:39] VITALS: BP 140/78
[2017-12-20] MEDS: TAMSULOSIN HYDROCHLORIDE 0.4 MG CAP PO SCH (18:10)
[2017-12-20] MEDS ORDERED: POTASSIUM CHL 20 Meq TABLET PO ONE (20:00)
[2017-12-20 21:40] VITALS: BP 127/60
[2017-12-20] MEDS: ENOXAPARIN SOD 80 MG/0.8ML SYRINGE SC SCH (22:05)
[2017-12-20] MEDS: ATORVASTATIN 20 MG TAB PO SCH (22:07)
[2017-12-20] MEDS: ASCORBIC ACID 500 MG TAB PO SCH (22:08)
[2017-12-21] MEDS: InsuLIN REG 1unit/0.01ml Soln (100units/ml) SC SCH ×4 (00:01→18:42)
[2017-12-21] MEDS: DOBUTamine 1000MCG/ML 250 ML IV SCH (05:15)
[2017-12-21] MEDS: ACCU-CHEK COMFORT CURVE STRIP VI SCH ×5 (05:15→22:53)
[2017-12-21 05:27] VITALS: BP 112/58
[2017-12-21] MEDS: risperiDONE 1 MG TAB PO SCH ×2 (05:48→22:52)
[2017-12-21] MEDS: glipiZIDE 5 MG TAB PO SCH (05:49)
[2017-12-21 08:00] VITALS: BP 138/77
[2017-12-21 09:00] VITALS: BP 138/77
[2017-12-21] MEDS: ASPirin 81 mg TAB PO SCH (09:17)
[2017-12-21] MEDS: POTASSIUM CHL 20 Meq TABLET PO SCH (09:18)
[2017-12-21] MEDS: ASCORBIC ACID 500 MG TAB PO SCH ×2 (09:18→22:52)
[2017-12-21] MEDS: PANTOPRAZOLE 40 MG TAB PO SCH (09:18)
[2017-12-21] MEDS: PATIENTS OWN MEDICATION PO SCH (09:18)
[2017-12-21] MEDS: MULTIPLE VITAMINS W/ MINERALS TAB PO SCH (09:18)
[2017-12-21 09:56] LABS: BUN/Creatinine Ratio 31.6; Bilirubin, Total 0.6 mg/dL (0.2-1.0); Calcium 8.5 mg/dL (8.5-10.1); Potassium 3.7 mmol/L (3.5-5.1); Total Protein 7.2 g/dL (6.4-8.2)
[2017-12-21] MEDS: RAMIPRIL 2.5 MG CAP PO SCH ×2 (10:00→22:51)
[2017-12-21] MEDS: Boost Glucose Control 8 Ounces PO SCH ×2 (11:36→18:42)
[2017-12-21 13:00] VITALS: BP 117/63
[2017-12-21 17:00] VITALS: BP 117/59
[2017-12-21] MEDS: TAMSULOSIN HYDROCHLORIDE 0.4 MG CAP PO SCH (18:42)
[2017-12-21] MEDS ORDERED: MORPHINE SULFATE 4 MG/ML SYR/VIAL IV PRN (20:00)
[2017-12-21 22:05] VITALS: BP 139/68
[2017-12-21] MEDS: ENOXAPARIN SOD 80 MG/0.8ML SYRINGE SC SCH (22:52)
[2017-12-21] MEDS: ATORVASTATIN 20 MG TAB PO SCH (22:52)
[2017-12-22] MEDS: InsuLIN REG 1unit/0.01ml Soln (100units/ml) SC SCH ×4 (00:08→18:00)
[2017-12-22 05:00] VITALS: BP 109/47
[2017-12-22] MEDS: ACCU-CHEK COMFORT CURVE STRIP VI SCH ×3 (06:13→17:58)
[2017-12-22] MEDS: glipiZIDE 5 MG TAB PO SCH (06:13)
[2017-12-22] MEDS: risperiDONE 1 MG TAB PO SCH (06:14)
[2017-12-22] MEDS: Boost Glucose Control 8 Ounces PO SCH ×2 (08:00→17:58)
[2017-12-22 09:00] VITALS: BP 114/51
[2017-12-22] MEDS: ASPirin 81 mg TAB PO SCH (11:05)
[2017-12-22] MEDS: PATIENTS OWN MEDICATION PO SCH (11:05)
[2017-12-22] MEDS: RAMIPRIL 2.5 MG CAP PO SCH (11:09)
[2017-12-22] MEDS: POTASSIUM CHL 20 Meq TABLET PO SCH (11:09)
[2017-12-22] MEDS: PANTOPRAZOLE 40 MG TAB PO SCH (11:10)
[2017-12-22] MEDS: ASCORBIC ACID 500 MG TAB PO SCH (11:10)
[2017-12-22] MEDS: MULTIPLE VITAMINS W/ MINERALS TAB PO SCH (11:11)
[2017-12-22 12:54] VITALS: BP 123/59
[2017-12-22 16:06] VITALS: BP 123/59
[2017-12-22 17:00] VITALS: BP 106/54
[2017-12-22] MEDS: TAMSULOSIN HYDROCHLORIDE 0.4 MG CAP PO SCH (18:00)
== END 2017-12-22 16:41 | disposition home or self-care (01) | DRG 280 ==
LOC: EDBD 18:32 → ER 18:36 → TELE 18:37 → TELE-CENTR 12-17 08:28 → TELE-EAST 12-17 11:42
PROVIDERS: ADMIT Nurse Practitioner; ATTEND Internal Medicine Cardiovascular Disease
DX: I13.0 Hypertensive heart and chronic kidney disease with heart failure and stage 1 through stage 4 chronic kidney disease, or unspecified chronic kidney disease (principal); I21.4 Non-ST elevation (NSTEMI) myocardial infarction; G92 Toxic encephalopathy; J96.90 Respiratory failure, unspecified, unspecified whether with hypoxia or hypercapnia; I50.43 Acute on chronic combined systolic (congestive) and diastolic (congestive) heart failure; Z51.5 Encounter for palliative care; Z66 Do not resuscitate; E78.5 Hyperlipidemia, unspecified; E87.6 Hypokalemia; F03.90 Unspecified dementia, unspecified severity, without behavioral disturbance, psychotic disturbance, mood disturbance, and anxiety; K59.00 Constipation, unspecified; N18.3 Chronic kidney disease, stage 3 (moderate); E11.22 Type 2 diabetes mellitus with diabetic chronic kidney disease; Z82.49 Family history of ischemic heart disease and other diseases of the circulatory system; Z82.5 Family history of asthma and other chronic lower respiratory diseases; Z86.73 Personal history of transient ischemic attack (TIA), and cerebral infarction without residual deficits; Z95.0 Presence of cardiac pacemaker; Z95.1 Presence of aortocoronary bypass graft; Z95.2 Presence of prosthetic heart valve; Z88.6 Allergy status to analgesic agent; Z88.8 Allergy status to other drugs, medicaments and biological substances; Z79.899 Other long term (current) drug therapy; Z87.440 Personal history of urinary (tract) infections; Z71.3 Dietary counseling and surveillance
CPT/HCPCS: 36415; 51702; 70450; 71045; 78582; 80048; 80053; 81001; 82962; 83735; 83880; 84443; 84484; 85025; 85379; 85610; 85730; 93005; 94761; 96372; 96374; 97163; J1815; J2001; J3480; J7060

== ENCOUNTER 2018-04-17 10:57 | Inpatient (IN) | payer MEDICARE, OTHER ==
[~2018-04-17] VITALS: Ht 175.3 cm; Wt 96.2 kg
[~2018-04-17 10:57] MED LIST changes: -ONGLYZA PO; -SIMV-13 PO
[2018-04-17] MEDS ORDERED: SODIUM CHLORIDE 0.9% 1,000 ML IV ONE ×2 (11:11)
[2018-04-17] MEDS ORDERED: PIPERACILLIN-TAZOB 3.375GM 100 ML IV ONE (11:15)
[2018-04-17 11:44] LABS: Basophils # (auto) 0.1 uL; Basophils % (auto) 0.7 % (0.0-2.0); Eosinophils # (auto) 0 uL; Hematocrit 39.6 % (41.0-53.0); Lymphocytes # (auto) 0.3 uL; Lymphocytes % (auto) 3.1 % (10.0-50.0); Mean Corpuscular Hemoglobin 29.3 pg (28.0-32.0); Monocytes # (auto) 0.7 uL; Monocytes % (auto) 6.4 % (0.0-12.0); Neutrophils # (auto) 9.3 uL; Neutrophils % (auto) 89.8 % (37.0-80.0); Platelet Count (auto) 169 10^3/uL (140-450); Red Blood Cells 4.45 10^6/uL (4.5-5.90); Red Cell Distribution Width 15.9 % (11.8-14.3); White Blood Cell 10.4 10^3/uL (4.4-10.8)
[2018-04-17 12:03] LABS: Albumin 2.1 g/dL (3.4-5.0); Calcium 8.3 mg/dL (8.5-10.1); INR 1.23 (0.9-1.15); Partial Thromboplastin Time 26.9 sec (23.78-33.04); Potassium 4.8 mmol/L (3.5-5.1)
[2018-04-17 12:12] LABS: Bilirubin, Total 0.5 mg/dL (0.2-1.0); Total Protein 6.6 g/dL (6.4-8.2)
[2018-04-17] MEDS ORDERED: ENOXAPARIN SOD 80 MG/0.8ML SYRINGE SC ONE (13:30)
[2018-04-17 18:31] LABS: Urine Bacteria NONE SEEN /hpf (None Seen); Urine Blood Negative /uL (Negative); Urine Specific Gravity 1.014 (1.001-1.035); Urine WBC <1 /hpf (0 - 3)
[2018-04-17] MEDS ORDERED: ESCI20TA PO (18:59)
[2018-04-17] MEDS ORDERED: NITROGLYCERIN 0.4 MG SL TAB SL PRN (21:00)
[2018-04-17] MEDS ORDERED: MORPHINE SULFATE 8mg/ml INJ SDV IV PRN (21:00)
[2018-04-17] MEDS: SODIUM CHLORIDE 0.9% 1,000 ML IV SCH (21:04)
[2018-04-17] MEDS ORDERED: PIPERACILLIN-TAZO 4.5GM 100 ML IV SCH (22:00)
[2018-04-17] MEDS: risperiDONE 1 MG TAB PO SCH (22:03)
[2018-04-17 23:17] VITALS: BP 105/57
[2018-04-18] VITALS (8 sets, daily range): BP systolic 90–119; BP diastolic 46–68
[2018-04-18] MEDS: metroNIDAZOLE 500MG/100ML 100 ML IV SCH ×5 (01:07→23:33)
[2018-04-18] MEDS: PIPERACILLIN-TAZOB 2.25GM 50 ML IV SCH ×3 (06:24→18:00)
[2018-04-18] MEDS: SODIUM CHLORIDE 0.9% 1,000 ML IV SCH ×2 (10:20→23:21)
[2018-04-18] MEDS: risperiDONE 1 MG TAB PO SCH ×2 (11:00→11:03)
[2018-04-19] MEDS: PIPERACILLIN-TAZOB 2.25GM 50 ML IV SCH ×4 (00:52→18:35)
[2018-04-19 05:00] VITALS: BP 121/54
[2018-04-19] MEDS: metroNIDAZOLE 500MG/100ML 100 ML IV SCH ×4 (05:29→23:33)
[2018-04-19 09:00] VITALS: BP 127/53
[2018-04-19] MEDS: risperiDONE 1 MG TAB PO SCH ×2 (09:34→21:54)
[2018-04-19 12:37] VITALS: BP 124/69
[2018-04-19] MEDS: SODIUM CHLORIDE 0.9% 1,000 ML IV SCH (13:00)
[2018-04-19] MEDS: ASCORBIC ACID 500 MG TAB PO SCH ×2 (13:59→21:54)
[2018-04-19] MEDS: MULTIPLE VITAMINS W/ MINERALS TAB PO SCH (13:59)
[2018-04-19 17:00] VITALS: BP 109/56
[2018-04-19 21:25] VITALS: BP 106/56
[2018-04-19 22:00] VITALS: BP 109/62
[2018-04-20] MEDS: PIPERACILLIN-TAZOB 2.25GM 50 ML IV SCH ×4 (00:37→18:00)
[2018-04-20] MEDS: SODIUM CHLORIDE 0.9% 1,000 ML IV SCH ×2 (02:20→15:40)
[2018-04-20 05:00] VITALS: BP 131/63
[2018-04-20] MEDS: metroNIDAZOLE 500MG/100ML 100 ML IV SCH ×3 (05:30→20:00)
[2018-04-20 08:00] VITALS: BP 145/64
[2018-04-20] MEDS: ASCORBIC ACID 500 MG TAB PO SCH ×2 (11:54→22:18)
[2018-04-20] MEDS: MULTIPLE VITAMINS W/ MINERALS TAB PO SCH (11:54)
[2018-04-20 12:00] VITALS: BP 116/60
[2018-04-20] MEDS: risperiDONE 1 MG TAB PO SCH ×2 (12:26→22:18)
[2018-04-20 17:00] VITALS: BP 134/63
[2018-04-20 20:00] VITALS: BP 104/45
[2018-04-20 22:00] VITALS: BP 104/45
[2018-04-21] MEDS: metroNIDAZOLE 500MG/100ML 100 ML IV SCH ×4 (00:05→17:24)
[2018-04-21] MEDS: PIPERACILLIN-TAZOB 2.25GM 50 ML IV SCH ×4 (01:20→18:20)
[2018-04-21] MEDS: SODIUM CHLORIDE 0.9% 1,000 ML IV SCH ×2 (05:00→18:20)
[2018-04-21 05:27] VITALS: BP 125/67
[2018-04-21 09:00] VITALS: BP 129/63
[2018-04-21 13:00] VITALS: BP 116/55
[2018-04-21] MEDS: MULTIPLE VITAMINS W/ MINERALS TAB PO SCH (13:03)
[2018-04-21] MEDS: ASCORBIC ACID 500 MG TAB PO SCH ×2 (13:03→22:55)
[2018-04-21] MEDS: risperiDONE 1 MG TAB PO SCH ×2 (13:04→22:54)
[2018-04-21 13:23] LABS: Basophils # (auto) 0 uL; Basophils % (auto) 0.3 % (0.0-2.0); Eosinophils # (auto) 0 uL; Eosinophils % (auto) 0.2 % (0.0-7.0); Hematocrit 38.1 % (41.0-53.0); Hemoglobin 12.3 g/dL (13.5-17.5); Lymphocytes # (auto) 0.7 uL; Lymphocytes % (auto) 9.3 % (10.0-50.0); Mean Corpuscular Hemoglobin 28.9 pg (28.0-32.0); Mean Corpuscular Hgb Conc. 32.3 g/dL (32.0-36.0); Mean Corpuscular Volume 89.4 fL (80.0-100.0); Monocytes # (auto) 0.6 uL; Monocytes % (auto) 8.4 % (0.0-12.0); Neutrophils # (auto) 6.2 uL; Neutrophils % (auto) 81.8 % (37.0-80.0); Platelet Count (auto) 119 10^3/uL (140-450); Red Blood Cells 4.26 10^6/uL (4.5-5.90); Red Cell Distribution Width 16.4 % (11.8-14.3); White Blood Cell 7.6 10^3/uL (4.4-10.8)
[2018-04-21 13:29] LABS: BUN/Creatinine Ratio 31.9; Calcium 7.8 mg/dL (8.5-10.1)
[2018-04-21 13:32] LABS: Potassium 2.9 mmol/L (3.5-5.1)
[2018-04-21] MEDS: POTASSIUM CHL 20MEQ/100ML 100 ML IV SCH ×4 (16:23→22:21)
[2018-04-21 16:56] VITALS: BP 115/62
[2018-04-21] MEDS: IPRATROPIUM BROM 0.5 MG/2.5ML INH SOL NEB SCH (18:59)
[2018-04-21 22:00] VITALS: BP 117/55
[2018-04-22] MEDS: metroNIDAZOLE 500MG/100ML 100 ML IV SCH ×3 (00:17→12:08)
[2018-04-22] MEDS: PIPERACILLIN-TAZOB 2.25GM 50 ML IV SCH ×4 (00:18→18:27)
[2018-04-22] MEDS: IPRATROPIUM BROM 0.5 MG/2.5ML INH SOL NEB SCH ×4 (00:39→18:57)
[2018-04-22 05:53] VITALS: BP 110/51
[2018-04-22 05:56] LABS: Basophils # (auto) 0 uL; Basophils % (auto) 0.1 % (0.0-2.0); Eosinophils # (auto) 0 uL; Eosinophils % (auto) 0.4 % (0.0-7.0); Hematocrit 36.6 % (41.0-53.0); Hemoglobin 12.1 g/dL (13.5-17.5); Lymphocytes # (auto) 0.7 uL; Lymphocytes % (auto) 10.6 % (10.0-50.0); Mean Corpuscular Hemoglobin 29.6 pg (28.0-32.0); Mean Corpuscular Volume 89.6 fL (80.0-100.0); Monocytes # (auto) 0.6 uL; Monocytes % (auto) 9.7 % (0.0-12.0); Neutrophils % (auto) 79.2 % (37.0-80.0); Platelet Count (auto) 125 10^3/uL (140-450); Red Blood Cells 4.09 10^6/uL (4.5-5.90); Red Cell Distribution Width 16.3 % (11.8-14.3); White Blood Cell 6.4 10^3/uL (4.4-10.8)
[2018-04-22 06:20] LABS: Albumin 1.8 g/dL (3.4-5.0); Bilirubin, Total 0.5 mg/dL (0.2-1.0); Calcium 7.9 mg/dL (8.5-10.1)
[2018-04-22 09:00] VITALS: BP 129/70
[2018-04-22] MEDS: MULTIPLE VITAMINS W/ MINERALS TAB PO SCH (10:26)
[2018-04-22] MEDS: ASCORBIC ACID 500 MG TAB PO SCH ×2 (10:26→22:20)
[2018-04-22] MEDS: risperiDONE 1 MG TAB PO SCH ×2 (10:26→22:20)
[2018-04-22] MEDS: SODIUM CHLORIDE 0.9% 1,000 ML IV SCH (10:26)
[2018-04-22] MEDS ORDERED: DEXTROSE (50%) 50ML SYRG IV PRN (12:00)
[2018-04-22] MEDS: D5W/SOD CHL 0.45% 1,000 ML IV SCH ×2 (12:07→22:19)
[2018-04-22 12:30] VITALS: BP 128/50
[2018-04-22] MEDS: ACCU-CHEK COMFORT CURVE STRIP VI SCH ×3 (12:46→22:22)
[2018-04-22] MEDS: InsuLIN REG 1unit/0.01ml Soln (100units/ml) SC SCH ×2 (12:47→18:28)
[2018-04-22 17:00] VITALS: BP 127/58
[2018-04-22] MEDS ORDERED: VANCOMYCIN PER PHARMACY 0 MG IV SCH (17:30)
[2018-04-22] MEDS: Boost Glucose Control 8 Ounces PO SCH (18:27)
[2018-04-22] MEDS: PRO-STAT 64 30ML PO SCH (18:28)
[2018-04-22 20:25] VITALS: BP 144/77
[2018-04-22 22:00] VITALS: BP 129/67
[2018-04-22] MEDS: VANCOMYCIN 1GM/250ML 250 ML IV SCH (22:19)
[2018-04-23] MEDS: IPRATROPIUM BROM 0.5 MG/2.5ML INH SOL NEB SCH ×4 (00:11→18:56)
[2018-04-23] MEDS: PIPERACILLIN-TAZOB 2.25GM 50 ML IV SCH ×4 (01:18→21:00)
[2018-04-23] MEDS: D5W/SOD CHL 0.45% 1,000 ML IV SCH ×3 (05:36→20:00)
[2018-04-23] MEDS: ACCU-CHEK COMFORT CURVE STRIP VI SCH ×3 (05:36→18:26)
[2018-04-23 05:51] VITALS: BP 117/65
[2018-04-23] MEDS: InsuLIN REG 1unit/0.01ml Soln (100units/ml) SC SCH ×4 (06:40→18:26)
[2018-04-23 08:56] VITALS: BP 134/65
[2018-04-23] MEDS: risperiDONE 1 MG TAB PO SCH ×2 (09:42→21:25)
[2018-04-23] MEDS: MULTIPLE VITAMINS W/ MINERALS TAB PO SCH (09:42)
[2018-04-23] MEDS: VANCOMYCIN 1GM/250ML 250 ML IV SCH ×2 (09:42→20:00)
[2018-04-23] MEDS: ASCORBIC ACID 500 MG TAB PO SCH ×2 (09:43→21:25)
[2018-04-23] MEDS: metroNIDAZOLE 500MG/100ML 100 ML IV SCH ×3 (12:36→23:00)
[2018-04-23] MEDS: PRO-STAT 64 30ML PO SCH ×2 (12:45→18:24)
[2018-04-23] MEDS: Boost Glucose Control 8 Ounces PO SCH ×2 (12:45→18:24)
[2018-04-23 13:00] VITALS: BP 126/59
[2018-04-23] MEDS ORDERED: LIDOCAINE 1% (LOCAL ANESTH.) PF 5ml SDV ID ONE (15:30)
[2018-04-23 17:00] VITALS: BP 112/52
[2018-04-23 22:00] VITALS: BP 137/70
[2018-04-23] MEDS: SODIUM CHLOR 0.9% PF (SALINE LOCK) 10ML VIAL/SYR IV SCH (22:27)
[2018-04-24] MEDS: ACCU-CHEK COMFORT CURVE STRIP VI SCH ×5 (00:27→23:53)
[2018-04-24] MEDS: IPRATROPIUM BROM 0.5 MG/2.5ML INH SOL NEB SCH ×4 (00:39→19:41)
[2018-04-24] MEDS: PIPERACILLIN-TAZOB 2.25GM 50 ML IV SCH ×4 (03:00→21:13)
[2018-04-24] MEDS: D5W/SOD CHL 0.45% 1,000 ML IV SCH ×2 (04:00→15:32)
[2018-04-24 05:00] VITALS: BP 158/89
[2018-04-24] MEDS: metroNIDAZOLE 500MG/100ML 100 ML IV SCH ×4 (05:29→23:22)
[2018-04-24] MEDS: InsuLIN REG 1unit/0.01ml Soln (100units/ml) SC SCH ×5 (05:30→23:54)
[2018-04-24 06:16] LABS: BUN/Creatinine Ratio 31.6; Calcium 7.8 mg/dL (8.5-10.1); Potassium 3.3 mmol/L (3.5-5.1)
[2018-04-24] MEDS: PRO-STAT 64 30ML PO SCH ×2 (08:26→18:29)
[2018-04-24] MEDS: VANCOMYCIN 1GM/250ML 250 ML IV SCH (08:26)
[2018-04-24] MEDS: Boost Glucose Control 8 Ounces PO SCH ×2 (08:26→18:28)
[2018-04-24 09:00] VITALS: BP 128/61
[2018-04-24] MEDS: MULTIPLE VITAMINS W/ MINERALS TAB PO SCH (10:27)
[2018-04-24] MEDS: risperiDONE 1 MG TAB PO SCH ×2 (10:27→21:12)
[2018-04-24] MEDS: ASCORBIC ACID 500 MG TAB PO SCH ×2 (10:27→21:12)
[2018-04-24] MEDS: SODIUM CHLOR 0.9% PF (SALINE LOCK) 10ML VIAL/SYR IV SCH ×2 (11:12→21:12)
[2018-04-24 13:00] VITALS: BP 126/52
[2018-04-24 17:00] VITALS: BP 121/60
[2018-04-24] MEDS: POTASSIUM CHL 20MEQ/100ML 100 ML IV SCH ×2 (17:36→18:00)
[2018-04-24 20:00] VITALS: BP 123/65
[2018-04-25] MEDS: IPRATROPIUM BROM 0.5 MG/2.5ML INH SOL NEB SCH ×4 (00:42→19:50)
[2018-04-25] MEDS: VANCOMYCIN 1GM/250ML 250 ML IV SCH ×2 (01:40→20:00)
[2018-04-25] MEDS: PIPERACILLIN-TAZOB 2.25GM 50 ML IV SCH ×4 (03:00→22:05)
[2018-04-25] MEDS: D5W/SOD CHL 0.45% 1,000 ML IV SCH ×3 (04:00→12:00)
[2018-04-25 04:53] VITALS: BP 116/44
[2018-04-25] MEDS: metroNIDAZOLE 500MG/100ML 100 ML IV SCH ×4 (05:20→23:00)
[2018-04-25] MEDS: InsuLIN REG 1unit/0.01ml Soln (100units/ml) SC SCH ×4 (05:57→23:59)
[2018-04-25] MEDS: ACCU-CHEK COMFORT CURVE STRIP VI SCH ×4 (05:57→23:58)
[2018-04-25] MEDS: Boost Glucose Control 8 Ounces PO SCH ×2 (08:00→18:00)
[2018-04-25] MEDS: PRO-STAT 64 30ML PO SCH ×2 (08:00→18:00)
[2018-04-25 09:35] VITALS: BP 127/66
[2018-04-25] MEDS: ASCORBIC ACID 500 MG TAB PO SCH ×2 (09:49→22:06)
[2018-04-25] MEDS: risperiDONE 1 MG TAB PO SCH ×2 (09:49→22:06)
[2018-04-25] MEDS: MULTIPLE VITAMINS W/ MINERALS TAB PO SCH (09:49)
[2018-04-25] MEDS: SODIUM CHLOR 0.9% PF (SALINE LOCK) 10ML VIAL/SYR IV SCH ×2 (09:49→22:06)
[2018-04-25 13:19] VITALS: BP 130/69
[2018-04-25 16:41] VITALS: BP 120/62
[2018-04-25 21:28] VITALS: BP 153/70
[2018-04-26] VITALS (7 sets, daily range): BP systolic 110–153; BP diastolic 49–70
[2018-04-26] MEDS: IPRATROPIUM BROM 0.5 MG/2.5ML INH SOL NEB SCH ×4 (00:59→18:54)
[2018-04-26] MEDS: D5W/SOD CHL 0.45% 1,000 ML IV SCH ×4 (02:30→20:00)
[2018-04-26] MEDS: PIPERACILLIN-TAZOB 2.25GM 50 ML IV SCH ×4 (02:41→21:04)
[2018-04-26] MEDS: metroNIDAZOLE 500MG/100ML 100 ML IV SCH ×4 (05:26→23:00)
[2018-04-26 05:41] LABS: BUN/Creatinine Ratio 18.7; Calcium 7.3 mg/dL (8.5-10.1); Potassium 3.3 mmol/L (3.5-5.1)
[2018-04-26] MEDS: ACCU-CHEK COMFORT CURVE STRIP VI SCH ×4 (05:51→23:33)
[2018-04-26] MEDS: InsuLIN REG 1unit/0.01ml Soln (100units/ml) SC SCH ×4 (05:52→23:33)
[2018-04-26] MEDS: Boost Glucose Control 8 Ounces PO SCH ×2 (08:00→18:00)
[2018-04-26] MEDS: PRO-STAT 64 30ML PO SCH ×2 (08:00→18:00)
[2018-04-26] MEDS: SODIUM CHLOR 0.9% PF (SALINE LOCK) 10ML VIAL/SYR IV SCH ×2 (10:00→21:53)
[2018-04-26] MEDS: MULTIPLE VITAMINS W/ MINERALS TAB PO SCH (12:36)
[2018-04-26] MEDS: risperiDONE 1 MG TAB PO SCH ×2 (12:36→21:53)
[2018-04-26] MEDS: ASCORBIC ACID 500 MG TAB PO SCH ×2 (12:37→21:53)
[2018-04-26] MEDS: VANCOMYCIN 1GM/250ML 250 ML IV SCH (18:35)
[2018-04-27] MEDS: IPRATROPIUM BROM 0.5 MG/2.5ML INH SOL NEB SCH ×4 (00:04→19:03)
[2018-04-27] MEDS: PIPERACILLIN-TAZOB 2.25GM 50 ML IV SCH ×4 (03:04→21:22)
[2018-04-27] MEDS: D5W/SOD CHL 0.45% 1,000 ML IV SCH ×3 (04:00→20:00)
[2018-04-27 05:00] VITALS: BP 120/69
[2018-04-27] MEDS: metroNIDAZOLE 500MG/100ML 100 ML IV SCH ×4 (05:00→23:04)
[2018-04-27] MEDS: ACCU-CHEK COMFORT CURVE STRIP VI SCH ×3 (06:06→18:11)
[2018-04-27] MEDS: InsuLIN REG 1unit/0.01ml Soln (100units/ml) SC SCH ×3 (06:06→18:00)
[2018-04-27] MEDS: Boost Glucose Control 8 Ounces PO SCH ×2 (08:00→18:11)
[2018-04-27] MEDS: PRO-STAT 64 30ML PO SCH ×2 (08:00→18:11)
[2018-04-27 09:00] VITALS: BP 130/59
[2018-04-27] MEDS: SODIUM CHLOR 0.9% PF (SALINE LOCK) 10ML VIAL/SYR IV SCH ×2 (10:39→21:23)
[2018-04-27] MEDS: MULTIPLE VITAMINS W/ MINERALS TAB PO SCH (10:39)
[2018-04-27] MEDS: risperiDONE 1 MG TAB PO SCH ×2 (10:39→21:22)
[2018-04-27] MEDS: ASCORBIC ACID 500 MG TAB PO SCH ×2 (10:40→21:22)
[2018-04-27 13:00] VITALS: BP 124/58
[2018-04-27 17:36] VITALS: BP 119/55
[2018-04-27] MEDS: VANCOMYCIN 1GM/250ML 250 ML IV SCH (18:11)
[2018-04-27 21:30] VITALS: BP 90/51
[2018-04-28] MEDS: ACCU-CHEK COMFORT CURVE STRIP VI SCH ×4 (00:03→18:02)
[2018-04-28] MEDS: InsuLIN REG 1unit/0.01ml Soln (100units/ml) SC SCH ×4 (00:03→18:11)
[2018-04-28] MEDS: IPRATROPIUM BROM 0.5 MG/2.5ML INH SOL NEB SCH ×4 (00:47→18:00)
[2018-04-28] MEDS: PIPERACILLIN-TAZOB 2.25GM 50 ML IV SCH ×2 (02:30→10:44)
[2018-04-28] MEDS: D5W/SOD CHL 0.45% 1,000 ML IV SCH ×3 (04:00→20:00)
[2018-04-28 05:13] VITALS: BP 93/56
[2018-04-28] MEDS: metroNIDAZOLE 500MG/100ML 100 ML IV SCH ×4 (05:13→22:30)
[2018-04-28 08:00] VITALS: BP 119/63
[2018-04-28] MEDS: Boost Glucose Control 8 Ounces PO SCH ×2 (08:00→18:50)
[2018-04-28] MEDS: PRO-STAT 64 30ML PO SCH ×2 (08:00→18:50)
[2018-04-28 08:37] LABS: Albumin 1.3 g/dL (3.4-5.0); Calcium 7.1 mg/dL (8.5-10.1); Potassium 3.1 mmol/L (3.5-5.1)
[2018-04-28 08:41] LABS: Bilirubin, Total 0.4 mg/dL (0.2-1.0)
[2018-04-28 09:00] VITALS: BP 119/63
[2018-04-28] MEDS: MULTIPLE VITAMINS W/ MINERALS TAB PO SCH (10:45)
[2018-04-28] MEDS: SODIUM CHLOR 0.9% PF (SALINE LOCK) 10ML VIAL/SYR IV SCH ×2 (10:45→21:41)
[2018-04-28] MEDS: risperiDONE 1 MG TAB PO SCH ×2 (10:45→21:42)
[2018-04-28] MEDS: ASCORBIC ACID 500 MG TAB PO SCH ×2 (10:46→21:42)
[2018-04-28 12:30] VITALS: BP 115/62
[2018-04-28] MEDS ORDERED: POTASSIUM CHL 20 Meq TABLET PO ONE (14:15)
[2018-04-28] MEDS ORDERED: ENOXAPARIN SOD 30 MG/0.3 ML SYRINGE SC ONE (14:15)
[2018-04-28 16:39] VITALS: BP 116/66
[2018-04-28] MEDS: PIPERACILLIN-TAZOB 3.375GM 100 ML IV SCH ×2 (16:53→22:30)
[2018-04-28] MEDS: VANCOMYCIN 1GM/250ML 250 ML IV SCH (18:00)
[2018-04-28 21:51] VITALS: BP 95/52
[2018-04-29] VITALS (7 sets, daily range): BP systolic 95–144; BP diastolic 52–82
[2018-04-29] MEDS: InsuLIN REG 1unit/0.01ml Soln (100units/ml) SC SCH ×5 (00:07→23:35)
[2018-04-29] MEDS: ACCU-CHEK COMFORT CURVE STRIP VI SCH ×5 (00:07→23:35)
[2018-04-29] MEDS: IPRATROPIUM BROM 0.5 MG/2.5ML INH SOL NEB SCH ×4 (00:56→18:00)
[2018-04-29] MEDS: D5W/SOD CHL 0.45% 1,000 ML IV SCH ×3 (03:54→19:50)
[2018-04-29] MEDS: metroNIDAZOLE 500MG/100ML 100 ML IV SCH ×4 (04:36→23:13)
[2018-04-29] MEDS: PIPERACILLIN-TAZOB 3.375GM 100 ML IV SCH ×4 (04:36→23:13)
[2018-04-29 05:46] LABS: Basophils # (auto) 0.1 uL; Basophils % (auto) 1.4 % (0.0-2.0); Eosinophils # (auto) 0.1 uL; Eosinophils % (auto) 1.5 % (0.0-7.0); Hematocrit 31.2 % (41.0-53.0); Hemoglobin 10.5 g/dL (13.5-17.5); Lymphocytes # (auto) 0.7 uL; Lymphocytes % (auto) 11.3 % (10.0-50.0); Mean Corpuscular Hemoglobin 29.6 pg (28.0-32.0); Mean Corpuscular Hgb Conc. 33.5 g/dL (32.0-36.0); Mean Corpuscular Volume 88.2 fL (80.0-100.0); Monocytes # (auto) 0.6 uL; Monocytes % (auto) 9.1 % (0.0-12.0); Neutrophils # (auto) 4.7 uL; Neutrophils % (auto) 76.7 % (37.0-80.0); Platelet Count (auto) 127 10^3/uL (140-450); Red Blood Cells 3.54 10^6/uL (4.5-5.90); Red Cell Distribution Width 17.1 % (11.8-14.3); White Blood Cell 6.1 10^3/uL (4.4-10.8)
[2018-04-29 06:05] LABS: BUN/Creatinine Ratio 16.5; Calcium 6.9 mg/dL (8.5-10.1); Potassium 3.6 mmol/L (3.5-5.1)
[2018-04-29] MEDS: Boost Glucose Control 8 Ounces PO SCH ×2 (09:46→18:53)
[2018-04-29] MEDS: SODIUM CHLOR 0.9% PF (SALINE LOCK) 10ML VIAL/SYR IV SCH ×2 (09:46→21:43)
[2018-04-29] MEDS: risperiDONE 1 MG TAB PO SCH ×2 (09:47→21:43)
[2018-04-29] MEDS: ASCORBIC ACID 500 MG TAB PO SCH ×2 (09:47→21:43)
[2018-04-29] MEDS: MULTIPLE VITAMINS W/ MINERALS TAB PO SCH (09:47)
[2018-04-29] MEDS: ENOXAPARIN SOD 30 MG/0.3 ML SYRINGE SC SCH (09:48)
[2018-04-29] MEDS: PRO-STAT 64 30ML PO SCH ×2 (09:58→18:00)
[2018-04-30] MEDS ORDERED: FUROSEMIDE 40 MG/4 ML VIAL IV ONE ×3 (00:45→19:15)
[2018-04-30] MEDS: D5W/SOD CHL 0.45% 1,000 ML IV SCH ×2 (04:31→12:00)
[2018-04-30] MEDS: metroNIDAZOLE 500MG/100ML 100 ML IV SCH ×4 (04:39→23:07)
[2018-04-30] MEDS: PIPERACILLIN-TAZOB 3.375GM 100 ML IV SCH ×4 (04:39→23:07)
[2018-04-30 04:46] VITALS: BP 104/61
[2018-04-30 05:32] LABS: Basophils # (auto) 0 uL; Basophils % (auto) 0.3 % (0.0-2.0); Eosinophils # (auto) 0.1 uL; Eosinophils % (auto) 0.7 % (0.0-7.0); Hematocrit 33.1 % (41.0-53.0); Hemoglobin 11.1 g/dL (13.5-17.5); Lymphocytes # (auto) 0.7 uL; Lymphocytes % (auto) 9.2 % (10.0-50.0); Mean Corpuscular Hemoglobin 29.3 pg (28.0-32.0); Mean Corpuscular Hgb Conc. 33.5 g/dL (32.0-36.0); Mean Corpuscular Volume 87.5 fL (80.0-100.0); Monocytes # (auto) 0.7 uL; Monocytes % (auto) 8.6 % (0.0-12.0); Neutrophils # (auto) 6.4 uL; Neutrophils % (auto) 81.2 % (37.0-80.0); Platelet Count (auto) 145 10^3/uL (140-450); Red Blood Cells 3.79 10^6/uL (4.5-5.90); Red Cell Distribution Width 17.5 % (11.8-14.3); White Blood Cell 7.9 10^3/uL (4.4-10.8)
[2018-04-30] MEDS: InsuLIN REG 1unit/0.01ml Soln (100units/ml) SC SCH ×3 (05:32→18:00)
[2018-04-30] MEDS: ACCU-CHEK COMFORT CURVE STRIP VI SCH ×3 (05:32→20:03)
[2018-04-30 05:51] LABS: BUN/Creatinine Ratio 15.3; Potassium 3.3 mmol/L (3.5-5.1)
[2018-04-30] MEDS: IPRATROPIUM BROM 0.5 MG/2.5ML INH SOL NEB SCH ×4 (06:09→19:20)
[2018-04-30] MEDS: Boost Glucose Control 8 Ounces PO SCH ×2 (08:00→18:00)
[2018-04-30] MEDS: PRO-STAT 64 30ML PO SCH ×2 (08:00→18:00)
[2018-04-30 09:00] VITALS: BP 108/63
[2018-04-30] MEDS: MULTIPLE VITAMINS W/ MINERALS TAB PO SCH (09:16)
[2018-04-30] MEDS: ASCORBIC ACID 500 MG TAB PO SCH ×2 (09:16→21:21)
[2018-04-30] MEDS: SODIUM CHLOR 0.9% PF (SALINE LOCK) 10ML VIAL/SYR IV SCH ×2 (09:17→21:20)
[2018-04-30] MEDS: risperiDONE 1 MG TAB PO SCH ×2 (09:17→21:20)
[2018-04-30] MEDS: ENOXAPARIN SOD 30 MG/0.3 ML SYRINGE SC SCH (09:17)
[2018-04-30] MEDS ORDERED: PANTOPRAZOLE 40 MG/10 ML VIAL IV ONE (12:45)
[2018-04-30 12:59] VITALS: BP 115/59
[2018-04-30] MEDS: POTASSIUM CHL 20MEQ/100ML 100 ML IV SCH ×2 (16:13→18:50)
[2018-04-30 17:00] VITALS: BP 105/59
[2018-04-30] MEDS ORDERED: VANCOMYCIN 1GM/250ML 250 ML IV SCH (21:00)
[2018-04-30 22:08] VITALS: BP 101/44
[2018-05-01] MEDS: InsuLIN REG 1unit/0.01ml Soln (100units/ml) SC SCH
[2018-05-01] MEDS: ACCU-CHEK COMFORT CURVE STRIP VI SCH (00:19)
[2018-05-01] MEDS: IPRATROPIUM BROM 0.5 MG/2.5ML INH SOL NEB SCH (00:35)
[2018-05-01 04:10] VITALS: BP 43/26
[2018-05-01] MEDS ORDERED: PANTOPRAZOLE 40 MG/10 ML VIAL IV SCH (10:00)
== END 2018-05-01 04:30 | disposition expired | DRG 871 ==
LOC: ER 10:57 → EDBD 10:57 → OVERFLOW 10:58 → EAST 22:53
PROVIDERS: ADMIT Internal Medicine Cardiovascular Disease; ATTEND Internal Medicine Cardiovascular Disease
PROC: 02HV33Z Insertion of Infusion Device into Superior Vena Cava, Percutaneous Approach (ICD-10-PCS; principal; 2018-04-23)
DX: A41.50 Gram-negative sepsis, unspecified (principal); L89.154 Pressure ulcer of sacral region, stage 4; J96.90 Respiratory failure, unspecified, unspecified whether with hypoxia or hypercapnia; L03.818 Cellulitis of other sites; E11.9 Type 2 diabetes mellitus without complications; E78.5 Hyperlipidemia, unspecified; E87.6 Hypokalemia; I11.0 Hypertensive heart disease with heart failure; Z66 Do not resuscitate; Z51.5 Encounter for palliative care; F09 Unspecified mental disorder due to known physiological condition; G30.9 Alzheimer's disease, unspecified; F02.80 Dementia in other diseases classified elsewhere, unspecified severity, without behavioral disturbance, psychotic disturbance, mood disturbance, and anxiety; I25.10 Atherosclerotic heart disease of native coronary artery without angina pectoris; R74.8 Abnormal levels of other serum enzymes; J44.9 Chronic obstructive pulmonary disease, unspecified; N40.0 Benign prostatic hyperplasia without lower urinary tract symptoms; I50.9 Heart failure, unspecified; Z74.01 Bed confinement status; Z86.73 Personal history of transient ischemic attack (TIA), and cerebral infarction without residual deficits; Z87.01 Personal history of pneumonia (recurrent); Z88.6 Allergy status to analgesic agent; Z88.8 Allergy status to other drugs, medicaments and biological substances; Z79.899 Other long term (current) drug therapy; I25.2 Old myocardial infarction; Z87.440 Personal history of urinary (tract) infections; Z71.3 Dietary counseling and surveillance
CPT/HCPCS: 36415; 36569; 71045; 71250; 74176; 80048; 80053; 80202; 81001; 82565; 82962; 83605; 83880; 84484; 85025; 85610; 85730; 87040; 87077; 87081; 87186; 87205; 92610; 94640; 94667; 94668; 96365; 96366; 96372; C9113; J1815; J2543; J3480; J3490